=== PATIENT | male | born 1955 | race Caucasian/White ===

== ENCOUNTER → 2020-07-21 | Outpatient (CLI) | payer BC ==
[~2020-07-21] MED LIST: AMOX-CLAV PO; ASPI81TA45 PO; DOCU100T3 PO; LEVO200T5 PO; LEVO50TA5 PO; LISI-170 PO; MULT-658 PO; PREG150C PO; TAMS-11 PO; VITAMIN B12 PO
== END | disposition home or self-care (01) ==
LOC: STAR 13:58
PROVIDERS: ATTEND Student in an Organized Health Care Education/Training Program
DX: Z01.818 Encounter for other preprocedural examination (principal); N40.1 Benign prostatic hyperplasia with lower urinary tract symptoms; R94.31 Abnormal electrocardiogram [ECG] [EKG]; Z20.822 Contact with and (suspected) exposure to COVID-19
CPT/HCPCS: 87635; 93005

== ENCOUNTER 2020-07-27 08:54 | Day surgery (SDC) | payer BC ==
[~2020-07-27] VITALS: Ht 177.8 cm; Wt 118.1 kg
[2020-07-27 09:46] VITALS: BP 130/85
[2020-07-27] MEDS ORDERED: LACTATED RINGERS 1,000 ML IV SCH (10:00)
[2020-07-27] MEDS ORDERED: CHLORHEXIDINE 15 ML UDC MM ONE (10:00)
[2020-07-27] MEDS ORDERED: MIDAZOLAM 1 MG/ML, 2ML ONE (12:05)
[2020-07-27] MEDS ORDERED: CEFAZOLIN 1,000 MG ONE (12:07)
[2020-07-27] MEDS ORDERED: ONDANSETRON 2MG/ML, 2ML ONE (12:07)
[2020-07-27] MEDS ORDERED: PROPOFOL 10 MG/ML, 20ML ONE (12:07)
[2020-07-27] MEDS ORDERED: SUCCINYLCHOLINE 20 MG/ML, 10ML ONE (12:07)
[2020-07-27] MEDS ORDERED: SUGAMMADEX 200 MG/2 ML IVPush ONE (12:07)
[2020-07-27] MEDS ORDERED: ROCURONIUM 10 MG/ML,10ML ONE (12:07)
[2020-07-27] MEDS ORDERED: GEMCITABINE HCL 1,000 MG in SODIUM CHLORIDE 0.9% 23.7 ML BLADIN ONE (13:30)
[2020-07-27] MEDS ORDERED: SODIUM CHLORIDE 0.9% BLADIN ONE (13:30)
[2020-07-27] MEDS ORDERED: GEMCITABINE HCL 2,000 MG in SODIUM CHLORIDE 0.9% 47.4 ML BLADIN ONE (13:30)
[2020-07-27] MEDS ORDERED: GEMCITABINE HCL BLADIN ONE (13:30)
[2020-07-27] MEDS ORDERED: FENTANYL PF 100 MCG/2ML ONE (13:53)
[2020-07-27] MEDS ORDERED: DIAZEPAM 5 MG/ML, 2ML IVPush PRN (14:00)
[2020-07-27] MEDS ORDERED: PROMETHAZINE 25 MG/ML, 1ML IVPush PRN (14:00)
[2020-07-27] MEDS ORDERED: MEPERIDINE/PF 25MG/0.5ML IVPush PRN (14:00)
[2020-07-27] MEDS ORDERED: HYDROmorphone 1 MG/ML, 1ML INJ IVPush PRN (14:00)
[2020-07-27] MEDS ORDERED: LABETALOL 5MG/ML, 20ML IV PRN (14:00)
[2020-07-27] MEDS ORDERED: hydrALAzine 20 MG/ML, 1ML IV PRN (14:00)
[2020-07-27] MEDS ORDERED: ONDANSETRON 2MG/ML, 2ML IVPush PRN (14:00)
[2020-07-27] MEDS ORDERED: OXYcodone 5 MG/5 ML ORAL.SOL UDC PO PRN (14:00)
[2020-07-27] MEDS: FENTANYL PF 100 MCG/2ML IV PRN ×2 (14:05→14:11)
[2020-07-27] MEDS ORDERED: OXYcodone 5 MG/5 ML ORAL.SOL UDC ONE (14:06)
[2020-07-27] MEDS ORDERED: HYDROmorphone 1 MG/ML, 1ML INJ ONE (14:41)
== END 2020-07-27 17:35 | disposition home or self-care (01) ==
LOC: OUT 08:54
PROVIDERS: ATTEND Student in an Organized Health Care Education/Training Program
DX: N21.0 Calculus in bladder (principal); C67.2 Malignant neoplasm of lateral wall of bladder; N40.1 Benign prostatic hyperplasia with lower urinary tract symptoms; N13.8 Other obstructive and reflux uropathy; I10 Essential (primary) hypertension; Z79.890 Hormone replacement therapy; Z79.899 Other long term (current) drug therapy; Z87.442 Personal history of urinary calculi; Z88.2 Allergy status to sulfonamides; Z88.8 Allergy status to other drugs, medicaments and biological substances
CPT/HCPCS: 51720; 52235; 52317; 88307; C2630; J0330; J0690; J1170; J2250; J2405; J2704; J3010; J7120; C2625

== ENCOUNTER 2020-09-29 09:43 | Outpatient (CLI) | payer BC ==
[2020-09-29] MEDS ORDERED: DOXY100T23 PO (10:30)
[2020-09-29] MEDS ORDERED: L.AC1CAP6 PO (10:30)
== END 2020-09-29 23:59 | disposition home or self-care (01) ==
LOC: STAR 09:43
PROVIDERS: ATTEND Student in an Organized Health Care Education/Training Program
DX: Z01.818 Encounter for other preprocedural examination (principal); N40.1 Benign prostatic hyperplasia with lower urinary tract symptoms; Z20.822 Contact with and (suspected) exposure to COVID-19
CPT/HCPCS: 93005; U0003

== ENCOUNTER 2020-10-05 05:41 | Day surgery (SDC) | payer BC ==
[~2020-10-05] VITALS: Ht 177.8 cm; Wt 120.0 kg
[~2020-10-05 05:41] MED LIST changes: +DOXY100T23 PO; +L.AC1CAP6 PO
[2020-10-05 06:29] VITALS: BP 143/90
[2020-10-05] MEDS ORDERED: CHLORHEXIDINE 15 ML UDC ONE (06:36)
[2020-10-05] MEDS ORDERED: CHLORHEXIDINE 15 ML UDC PO ONE (07:00)
[2020-10-05] MEDS ORDERED: LACTATED RINGERS 1,000 ML IV SCH (07:00)
[2020-10-05] MEDS ORDERED: MIDAZOLAM 1 MG/ML, 2ML ONE (07:04)
[2020-10-05] MEDS ORDERED: FENTANYL PF 250 MCG/5ML ONE (07:04)
[2020-10-05] MEDS ORDERED: OPIUM/BELLADONNA SUPP.RECT 16.2-60 MG ONE (07:22)
[2020-10-05] MEDS ORDERED: ALBUTEROL/IPRATROPIUM 2.5MG/0.5MG, 3 ML NPPB PRN (08:00)
[2020-10-05] MEDS ORDERED: ONDANSETRON 2MG/ML, 2ML IVPush PRN (08:00)
[2020-10-05] MEDS ORDERED: METOPROLOL 1 MG/ML, 5ML IV PRN (08:00)
[2020-10-05] MEDS ORDERED: DIPHENHYDRAMINE 50 MG/ML, 1ML IVPush PRN (08:00)
[2020-10-05] MEDS ORDERED: EPHEDRINE 50 MG/ML, 1ML IVPush PRN (08:00)
[2020-10-05] MEDS ORDERED: PROMETHAZINE 25 MG/ML, 1ML IVPush PRN (08:00)
[2020-10-05] MEDS ORDERED: METOCLOPRAMIDE 5 MG/ML, 2ML IVPush PRN (08:00)
[2020-10-05] MEDS ORDERED: LABETALOL 5MG/ML, 20ML IV PRN (08:00)
[2020-10-05] MEDS ORDERED: hydrALAzine 20 MG/ML, 1ML IV PRN (08:00)
[2020-10-05] MEDS ORDERED: HYDROmorphone 1 MG/ML, 1ML INJ IVPush PRN (08:00)
[2020-10-05] MEDS ORDERED: ALBUTEROL SULFATE 2.5 MG/3 ML NPPB PRN (08:00)
[2020-10-05] MEDS ORDERED: HALOPERIDOL 5 MG/ML IV PRN (08:00)
[2020-10-05] MEDS: FENTANYL PF 100 MCG/2ML IV PRN ×2 (09:30→10:00)
[2020-10-05] MEDS ORDERED: FENTANYL PF 100 MCG/2ML ONE (09:36)
[2020-10-05] MEDS ORDERED: OXYcodone 5 MG/5 ML ORAL.SOL UDC ONE (09:36)
[2020-10-05] MEDS ORDERED: ACETAMINOPHEN 650 MG/20.3 ML UDC ONE (09:36)
[2020-10-05] MEDS: ACETAMINOPHEN 325 MG TABLET PO PRN ×2 (09:40→10:40)
[2020-10-05] MEDS: OXYcodone 5 MG/5 ML ORAL.SOL UDC PO PRN ×2 (09:40→10:40)
== END 2020-10-05 13:10 | disposition home or self-care (01) ==
LOC: OUT 05:41
PROVIDERS: ATTEND Student in an Organized Health Care Education/Training Program
DX: N40.1 Benign prostatic hyperplasia with lower urinary tract symptoms (principal); N13.8 Other obstructive and reflux uropathy; I10 Essential (primary) hypertension; E03.9 Hypothyroidism, unspecified; E66.9 Obesity, unspecified; Z68.36 Body mass index [BMI] 36.0-36.9, adult; Z79.82 Long term (current) use of aspirin; Z79.890 Hormone replacement therapy; Z79.899 Other long term (current) drug therapy; Z85.51 Personal history of malignant neoplasm of bladder; Z87.442 Personal history of urinary calculi; Z88.0 Allergy status to penicillin; Z88.5 Allergy status to narcotic agent
CPT/HCPCS: 52601; 88305; J2250; J3010; J7120